=== PATIENT | male | born 1960 | race Two or more races ===

== ENCOUNTER 2020-06-04 09:07 | Day surgery (SDC) | payer OTHER ==
[~2020-06-04 09:07] MED LIST: ARMOUR THYROID15 MG PO
== END 2020-06-04 13:45 | disposition home or self-care (01) ==
LOC: CIR.AMB 09:07
PROVIDERS: ATTEND Orthopaedic Surgery
DX: M77.12 Lateral epicondylitis, left elbow (principal); Z20.822 Contact with and (suspected) exposure to COVID-19